=== PATIENT | female | born 1970 | race Asian ===

== ENCOUNTER 2019-02-25 11:06 | Day surgery (SDC) | payer BC ==
[~2019-02-25 11:06] MED LIST: LACTATED RINGER'S 1,000 ML IV*
[2019-02-25] MEDS ORDERED: ONDANSETRON 4 MG INJ IV (12:30)
[2019-02-25] MEDS ORDERED: hydrALAzine 20 MG INJ IV (12:30)
[2019-02-25] MEDS ORDERED: LABETALOL HCL 20MG INJ IV (12:30)
[2019-02-25] MEDS ORDERED: PROCHLORPERAZINE 10 MG INJ IV (12:30)
[2019-02-25] MEDS ORDERED: DIPHENHYDRAMINE 50 MG INJ IV (12:30)
[2019-02-25] MEDS ORDERED: EPHEDrine SULFATE 50 MG/5 ML SYG IV (12:30)
[2019-02-25] MEDS ORDERED: FENTAnyl 50 MCG/ML VIAL IV ×3 (12:30)
[2019-02-25] MEDS ORDERED: OXYCODONE/ACETAMINOPHEN (5/325) TAB PO (12:30)
[2019-02-25] MEDS ORDERED: HYDROmorphONE 1 MG/5 ML IV SYRINGE IV ×3 (12:30)
[2019-02-25] MEDS ORDERED: MEPERIDINE 25 MG INJ IV (12:30)
[2019-02-25] MEDS ORDERED: FENTAnyl 50 MCG/ML VIAL (13:17)
[2019-02-25] MEDS ORDERED: MIDAZOLAM 1 MG/ML 2 ML INJ (13:17)
[2019-02-25] MEDS ORDERED: CLINDAMYCIN 900 MG/D5W (PMX) 50 ML IVPB (13:17)
[2019-02-25] MEDS ORDERED: LIDOCAINE 2% (SDV) 5 ML INJ (13:19)
[2019-02-25] MEDS ORDERED: PROPOFOL 20 ML (13:19)
[2019-02-25] MEDS ORDERED: DEXAMETHASONE 4 MG/ML 5 ML INJ (13:42)
[2019-02-25] MEDS ORDERED: ONDANSETRON 4 MG INJ (13:42)
[2019-02-25] MEDS ORDERED: FAMOTIDINE 20 MG INJ (13:42)
== END 2019-02-25 16:26 | disposition home or self-care (01) ==
LOC: SDS 11:06
DX: N92.1 Excessive and frequent menstruation with irregular cycle (principal); N92.6 Irregular menstruation, unspecified; N92.0 Excessive and frequent menstruation with regular cycle; F17.210 Nicotine dependence, cigarettes, uncomplicated; Z88.0 Allergy status to penicillin
CPT/HCPCS: 58558; 88305